=== PATIENT | female | born 1985 | race Caucasian/White ===

== ENCOUNTER 2018-07-06 00:40 | Emergency (ER) | payer MEDICAID ==
[~2018-07-06] VITALS: Ht 160 cm; Wt 66.7 kg
[2018-07-06 00:56] VITALS: Ht 160 cm; Wt 66.7 kg
[2018-07-06 03:23] VITALS: BP 108/59
== END 2018-07-06 03:23 | disposition home or self-care (01) ==
LOC: ED 00:40
DX: K21.9 Gastro-esophageal reflux disease without esophagitis (principal)
CPT/HCPCS: Q0162

== ENCOUNTER 2018-07-26 19:17 | Emergency (ER) | payer MEDICAID ==
[2018-07-26 20:23] LABS: BASOPHIL % 0.3 % (0-2); RED CELL DISTRIBUTION WIDTH 13.4 % (11.5-14.5)
[2018-07-26 20:28] LABS: PLATELET COUNT 428 x10^3mcL (130-400)
[2018-07-26 20:33] LABS: CALCIUM 8.5 mg/dL (8.5-10.1); CARBON DIOXIDE 23.6 mmol/L (21-32); CHLORIDE SERUM 105 mmol/L (98-107); CREATININE SERUM 0.5 mg/dL (0.6-1.0); GFR1 > 60 mL/min; GLUCOSE SERUM 101 mg/dL (74-106); POTASSIUM SERUM 3.2 mmol/L (3.5-5.1); SODIUM SERUM 140 mmol/L (136-145)
[2018-07-26 20:37] LABS: ALBUMIN 3.6 g/dL (3.4-5.0); ALKALINE PHOSPHATASE 101 U/L (46-116); ALT/SGPT 41 U/L (14-59); AMYLASE 30 U/L (25-115); AST/SGOT 25 U/L (15-37); BILIRUBIN TOTAL 0.24 mg/dL (0.20-1.00); LIPASE 107 IU/L (73-393)
[2018-07-26 20:38] LABS: TOTAL PROTEIN, SERUM 8.3 g/dL (6.4-8.2)
[2018-07-26 21:37] VITALS: BP 125/82
== END 2018-07-26 21:37 | disposition home or self-care (01) ==
LOC: ED 19:17
PROVIDERS: Emergency Medicine
DX: K21.9 Gastro-esophageal reflux disease without esophagitis (principal)
CPT/HCPCS: C9113; J2405; J7030